=== PATIENT | male | born 1955 | race Caucasian/White ===

== ENCOUNTER 2018-09-06 12:57 | Inpatient (IN) | payer MEDICARE ==
[2018-09-06] MEDS ORDERED: CLINDAMYCIN 900 MG/D5W RTU 900 MG/50 ML RTUPB IV ONE (13:30)
--- NOTE | 2018-09-06 13:30 | ER Document Report ---
ED Medical Screen (RME) - General Chief Complaint: Toothache Stated Complaint: TOOTH PAIN Time Seen by Provider: 09/06/18 13:18 Notes: Patient is a 62-year-old male that presents to the emergency department for chief complaint of right tooth pain, and jaw swelling. Patient first noticed pain in his jaw this past Wednesday, and progressed to significant swelling over the course the weekend into today ROS: Other than noted above, the 12 point review of systems was reviewed with the patient and were negative, all pertinent findings are included in the HPI. PHYSICAL EXAMINATION: Vital signs reviewed. GENERAL: Well-appearing, well-nourished and in no acute distress. HEAD: Atraumatic, normocephalic. EYES: Pupils equal round extraocular movements intact, conjunctiva are normal. ENT: Nares patent, dental caries noted, no discrete dental abscess appreciated. NECK: There is tenderness and swelling along the right lateral jawline and neck in the submental region is tender as well CV: Heart regular rate and rhythm LUNGS: No respiratory distress Musculoskeletal: Normal range of motion NEUROLOGICAL: Normal speech PSYCH: Normal mood, normal affect. MDM: Patient seen and examined for rapid initial assessment. Vital signs reviewed. A comprehensive ED assessment and evaluation of the patient, analysis of test results and completion of the medical decision making process will be conducted by additional ED providers. *Note is created using voice recognition software and may contain spelling, syntax or grammatical errors. TRAVEL OUTSIDE OF THE [place] IN LAST 30 DAYS: No - Related Data Allergies/Adverse Reactions: No Known Allergies Allergy (Verified 09/06/18 12:57) Past Medical History - Social History Chew tobacco use (# tins/day): No Frequency of alcohol use: Social Drug Abuse: None Renal/ Medical History: Denies: Hx Peritoneal Dialysis Past Surgical History: Reports: Hx Orthopedic Surgery - back, R shoulder Physical Exam - Vital signs Vitals: Temp Pulse Resp BP Pulse Ox 98.4 F 92 16 120/85 97 09/06/18 13:00 09/06/18 13:00 09/06/18 13:00 09/06/18 13:00 09/06/18 13:00 Course - Vital Signs Vital signs: Temp Pulse Resp BP Pulse Ox 98.4 F 92 16 120/85 97 09/06/18 13:00 09/06/18 13:00 09/06/18 13:00 09/06/18 13:00 09/06/18 13:00
[2018-09-06] MEDS ORDERED: NORMAL SALINE 1000 ML 1,000 ML IV ONE (13:32)
--- NOTE | 2018-09-06 13:58 | ER Document Report ---
ED General - General Chief Complaint: Toothache Stated Complaint: TOOTH PAIN Time Seen by Provider: 09/06/18 13:18 TRAVEL OUTSIDE OF THE [place] IN LAST 30 DAYS: No - HPI Notes: Patient is a 62-year-old male that presents to the emergency department for chief complaint of dental infection. Patient started having a right-sided dental pain Wednesday of last week. He saw his primary care provider on Wednesday and was placed on penicillin VK. Patient reports he has had increased pain and swelling over the right side of his face. He now has a constant achy pain that is worse when he moves his jaw. He states he is having a hard time swallowing and opening his mouth completely. He does report intermittent chills but has not taken his temperature. He denies history of dental infections in the past. He denies trauma to the area. Currently he denies any difficulty breathing. Past Medical History: Hypertension Past Surgical History: Negative Social History: Daily tobacco. Occasional alcohol. Denies drug use Family History: Reviewed and noncontributory for presenting illness Allergies: Reviewed, see documented allergy list. REVIEW OF SYSTEMS: CONSTITUTIONAL : No fever No chills No diaphoresis No recent illness EENT: Dental pain Facial swelling No vision changes No congestion No sore throat CARDIOVASCULAR: No chest pain No palpitations RESPIRATORY: No shortness of breath No cough No difficulty breathing GASTROINTESTINAL: No abdominal pain No nausea No vomiting No diarrhea GENITOURINARY: No dysuria No hematuria No difficulty urinating MUSCULOSKELETAL: No back pain No leg pain No arm pain SKIN: No rashes No lesions LYMPHATIC: No swollen, enlarged glands. NEUROLOGICAL: No lightheadedness No headache No weakness No paresthesias PSYCHIATRIC: No anxiety No depression PHYSICAL EXAMINATION: Vital signs reviewed, nursing noted reviewed. GENERAL: Well-appearing, well-nourished and in no acute distress. HEAD: Atraumatic, normocephalic. EYES: Eyes appear normal, extraocular movements intact, sclera anicteric, conjunctiva are normal. ENT: Sublingual edema, edema over right mandibular region with erythema. No palpable fluctuance. No visualized drainage. Limited range of motion of jaw. No lingual edema. Diffuse dental decay NECK: Normal range of motion, supple without lymphadenopathy LUNGS: Breath sounds clear to auscultation bilaterally and equal. No wheezes rales or rhonchi. HEART: Regular rate and rhythm without murmurs ABDOMEN: Soft, nontender, normoactive bowel sounds. No rebound, guarding, or rigidity. No masses appreciated. EXTREMITIES: Nontender, good range of motion, no pitting or edema. NEUROLOGICAL: No focal neurological deficits. Moves all extremities spontaneously Motor and sensory grossly intact on exam. PSYCH: Normal mood, normal affect. SKIN: Warm, Dry, normal turgor, no rashes or lesions noted on exposed skin - Related Data Allergies/Adverse Reactions: No Known Allergies Allergy (Verified 09/06/18 12:57) Past Medical History - Social History Smoking Status: Current Every Day Smoker Chew tobacco use (# tins/day): No Frequency of alcohol use: Social Drug Abuse: None Family History: Reviewed & Not Pertinent Patient has suicidal ideation: No Patient has homicidal ideation: No Renal/ Medical History: Denies: Hx Peritoneal Dialysis Past Surgical History: Reports: Hx Orthopedic Surgery - back, R shoulder Review of Systems - Review of Systems Notes: Dictated Physical Exam - Vital signs Vitals: Temp Pulse Resp BP Pulse Ox 98.4 F 92 16 120/85 97 09/06/18 13:00 09/06/18 13:00 09/06/18 13:00 09/06/18 13:00 09/06/18 13:00 - Notes Notes: Dictated Course - Re-evaluation Re-evalutation: 09/06/18 13:58 Vitals reviewed. Nursing notes reviewed. Patient has significant sublingual edema but is still protecting his airway and oxygenating well on room air. He has failed outpatient penicillin and will be started on IV clindamycin. Blood cultures were obtained. CT scan will be ordered to evaluate for Farhat's angina and airway compromise. 09/06/18 15:43 Patient reevaluated and had some increased pain, he was given a dose of morphine. On reevaluation after receiving pain medicine he is feeling much better. CT scan shows a large submental area of abscess. I discussed patient' s abscess with ENT Dr. Bliss, who will see the patient in consultation tomorrow. Patient will be admitted to [facility] for close respiratory monitoring. Remainder of his workup is unremarkable. Case discussed with Dr. Hester who accepted admission. Patient in agreement with this plan and stable at time of admission. Laboratory 09/06/18 09/06/18 14:00 14:00 WBC 13.7 H RBC 4.87 Hgb 11.1 L Hct 33.0 L MCV 68 L MCH 22.7 L MCHC 33.6 RDW 14.4 H Plt Count 362 Seg Neutrophils % 72.4 Lymphocytes % 16.0 Monocytes % 9.2 Eosinophils % 1.5 Basophils % 0.9 Absolute Neutrophils 9.9 H Absolute Lymphocytes 2.2 Absolute Monocytes 1.3 Absolute Eosinophils 0.2 Absolute Basophils 0.1 Sodium 141.5 Potassium 4.5 Chloride 104 Carbon Dioxide 26 Anion Gap 12 BUN 14 Creatinine 0.97 Est GFR ( Amer) > 60 Est GFR (Non-Af Amer) > 60 Glucose 91 Calcium 9.1 Total Bilirubin 1.4 H Direct Bilirubin 0.9 H Neonat Total Bilirubin Not Reportable Neonat Direct Bilirubin Not Reportable Neonat Indirect Bili Not Reportable AST 25 ALT 38 Alkaline Phosphatase 185 H Total Protein 6.6 Albumin 3.3 L Soft Tissue Neck CT 09/06/18 13:32 IMPRESSION: Right floor of mouth 4.5 x 3.5 x 3 cm abscess. - Vital Signs Vital signs: Temp Pulse Resp BP Pulse Ox 98.4 F 92 16 120/85 95 09/06/18 13:00 09/06/18 13:00 09/06/18 13:00 09/06/18 13:00 09/06/18 14:25 - Laboratory Result Diagrams: 09/06/18 14:00 09/06/18 14:00 Laboratory results interpreted by me: 09/06/18 09/06/18 14:00 14:00 WBC 13.7 H Hgb 11.1 L Hct 33.0 L MCV 68 L MCH 22.7 L RDW 14.4 H Absolute Neutrophils 9.9 H Total Bilirubin 1.4 H Direct Bilirubin 0.9 H Alkaline Phosphatase 185 H Albumin 3.3 L Critical Care Note - Critical Care Note Total time excluding time spent on procedures (mins): 35 Comments: Potential for airway compromise from Lucia's angina. Admit to IMCU. Close respiratory monitoring and frequent re-evaluations. Discharge - Discharge Clinical Impression: Ludwigs angina Condition: Stable Disposition: ADMITTED INPATIENT Admitting Provider: Hospitalist Unit Admitted: [facility]
[2018-09-06 14:10] LABS: ABSOLUTE BASOPHILS # (AUTO) 0.1 10^3/uL (0.0-0.2); ABSOLUTE EOSINOPHILS # (AUTO) 0.2 10^3/uL (0.0-0.6); ABSOLUTE LYMPHOCYTES (AUTO) 2.2 10^3/uL (0.5-4.7); ABSOLUTE MONOCYTES (AUTO) 1.3 10^3/uL (0.1-1.4); ABSOLUTE NEUT (AUTO) 9.9 10^3/uL (1.7-8.2); BASOPHILS % (AUTO) 0.9 % (0-2); EOSINOPHILS % (AUTO) 1.5 % (0-6); HEMOGLOBIN 11.1 g/dL (13.5-17.0); MEAN CORPUSCULAR HEMOGLOBIN 22.7 pg (27.0-33.4); MEAN CORPUSCULAR HGB CONC 33.6 g/dL (32.0-36.0); MEAN CORPUSCULAR VOLUME 68 fl (80-97); MONOCYTES % (AUTO) 9.2 % (3-13); PLATELET COUNT 362 10^3/uL (150-450); RED BLOOD COUNT 4.87 10^6/uL (4.35-5.55); RED CELL DISTRIBUTION WIDTH 14.4 % (11.5-14.0); SEGMENTED NEUTROPHILS % (AUTO) 72.4 % (42-78); TOTAL CELLS COUNTED % (AUTO) 100 %; WHITE BLOOD COUNT 13.7 10^3/uL (4.0-10.5)
[2018-09-06 14:35] LABS: ALANINE AMINOTRANSFERASE 38 U/L (21-72); ALBUMIN 3.3 g/dL (3.5-5.0); ALKALINE PHOSPHATASE 185 U/L (38-126); ANION GAP 12 (5-19); ASPARTATE AMINO TRANSFERASE 25 U/L (17-59); BILIRUBIN,DIRECT 0.9 mg/dL (0.0-0.4); BILIRUBIN,TOTAL 1.4 mg/dL (0.2-1.3); BLOOD UREA NITROGEN 14 mg/dL (7-20); CALCIUM 9.1 mg/dL (8.4-10.2); CARBON DIOXIDE 26 mmol/L (22-30); CHLORIDE 104 mmol/L (98-107); GLUCOSE 91 mg/dL (75-110); POTASSIUM 4.5 mmol/L (3.6-5.0); SODIUM 141.5 mmol/L (137-145); TOTAL PROTEIN 6.6 g/dL (6.3-8.2)
[2018-09-06] MEDS ORDERED: MORPHINE SULFATE 10 MG/ML INJ IV ONE (14:47)
--- NOTE | 2018-09-06 15:33 | RADIOLOGY REPORT (SQ) ---
EXAM DESCRIPTION: CT SOFT TISSUE NECK WITH COMPLETED DATE/TIME: 09/06/2018 2:46 pm REASON FOR STUDY: right neck and submental edema , right facial pain COMPARISON: None. TECHNIQUE: Post IV contrasted scanning from skull base through lung apices with review of bone, soft tissue and lung windows. Reconstructed coronal and sagittal MPR images reviewed. All images stored on PACS. All CT scanners at this facility use dose modulation, iterative reconstruction, and/or weight based d osing when appropriate to reduce radiation dose to as low as reasonably achievable (ALARA). [facility]: Dose Right [facility]: CareDose [facility]: Dose Right [facility]: Teradose 4D [facility]: CHORD CONTRAST TYPE AND DOSE: contrast/concentration: Isovue 350.00 mg/ml; Total Contrast Delivered: 75.0 ml; Total Saline Delivered: 55.0 ml RENAL FUNCTION: GFR > 60. RADIATION DOSE: CT Rad equipment meets quality standard of care and radiation dose reduction techniq ues were employed. CTDIvol: 16.8 mGy. DLP: 537 mGy-cm. . LIMITATIONS: None. FINDINGS: A 4.5 cm (AP) by 3.5 cm (transverse) by 3 cm (craniocaudad) abscess is present along the r ight floor of mouth, along the buccal and superficial surface of the right mandible. This tracks inf eriorly along the right floor of mouth between the mylohyoid and genopglossus muscle. There is mil d local mass effect, displacing the tongue to the left. No airway compromise. Abscess abuts the jatin tral aspect of the right submandibular gland. There is overlying superficial cellulitis along the ri ght cheek and chin soft tissues. These findings are best shown on axial images 46-54, coronal images 17-28, and sagittal image 26. SKULL BASE: Intact. MAJOR SALIVARY GLANDS: No solid or cystic masses. LYMPHADENOPATHY: Mild reactive cervical adenopathy with subcentimeter lymph nodes along the right car otid space MUCOSAL MASSES OR ASYMMETRY: Mild local mass effect along the abscess without airway compromise. Rem ainder of the naso nilay and hypopharynx are unremarkable. LARYNX/CORDS: No abnormal findings. VASCULAR STRUCTURES: The major vessels are patent. LUNG APICES: Clear. BONES: Intact. THYROID: Normal size. No masses. PARANASAL SINUSES: Clear. OTHER: No other significant finding. IMPRESSION: Right floor of mouth 4.5 x 3.5 x 3 cm abscess. TECHNICAL DOCUMENTATION: JOB ID: [id number] Quality ID # [id number]: Final reports with documentation of one or more dose reduction techniques (e.g., Au tomated exposure control, adjustment of the mA and/or kV according to patient size, use of iterative reconstruction technique) 2010 [employer]- All Rights Reserved Reading location - IP/workstation name: [email or web address]
[2018-09-06] MEDS ORDERED: AMPICILLIN SOD/SULBACTAM 3 GM VIAL IV ONE (15:40)
--- NOTE | 2018-09-06 15:46 | EKG REPORT ---
SEVERITY:- NORMAL ECG - SINUS RHYTHM : Confirmed by: Juliann Houston MD 06-Sep-2018 15:46:05
[2018-09-06] MEDS ORDERED: ONDANSETRON HCL INJ/PF 4 MG/2 ML SDV IV PRN (16:29)
[2018-09-06] MEDS ORDERED: ACETAMINOPHEN 650 MG SUPP.RECT PR PRN (16:29)
[2018-09-06] MEDS ORDERED: ALBUTEROL SULFATE HFA (90 MCG/PUFF) 8 GM MDI (1 MDI/ER DISP) IH PRN (16:37)
--- NOTE | 2018-09-06 17:05 | PDOC H&P ---
History of Present Illness Admission Date/PCP: t 09/06/2018 Patient complains of: tooth pain History of Present Illness: SUMI OLIVO is a 62 year old male 62-year-old male came to the emergency room with complaints of toothache for the last 1 week. Adding to the patient the symptoms of the symptoms started as us to take 1 week ago patient does not have any insurance so he tried to take Tylenol on a hoping that problem goes away but the symptoms of pain getting worse on the daily basis associated with occasional fever and chills decreased appetite and difficulty in swallowing he is able to take "only soup so he decided to call his primary care physician in [place] on got a prescription for penicillin VK started taking since last Wednesday despite taking the antibiotics his symptoms are not getting better at home actually gotten worse on the pain is radiating to the from the right side of the mouth all the way to the scalp according to the patient pain was 10 x 10 intense pain associated with decreased appetite and difficulty in swallowing he denies any problems with shortness of breath denies any nausea vomiting diarrhea denies any chest pains denies any shortness of breath so he decided to came to the emergency room today in the emergency room CT of the soft tissue neck was done found to have an abscess on the floor of the right side of the mouth. Was started on initially on clindamycin and then switched to Unasyn in the ER he was given IV morphine as per the patient pain is improved significantly. Denies any problems like this before. The ER physician discussed the case with ENT surgeon and as per the surgeon's recommendations started on Unasyn patient is going to be seen by the ENT tomorrow for further management in the meantime we are planning to admit the patient to the stepdown Past Medical History Cardiac Medical History: Reports: Hypertension EENT Medical History: Reports: Other - Patient complains of difficulty in hearing Neurological Medical History: Reports: None Endocrine Medical History: Reports: Other - Patient says he is borderline diabetic Malignancy Medical History: Reports: Other - Patient has a history of bladder cancer and last seen the urologist 6 month GI Medical History: Reports: Gastroesophageal Reflux Disease Musculoskeltal Medical History: Reports: None Skin Medical History: Reports: None Psychiatric Medical History: Reports: Depression Hematology: Reports: None Infectious Medical History: Reports: None Past Surgical History Past Surgical History: Reports: Orthopedic Surgery - back, R shoulder, Other - Patient has history of back surgeries due to his work Social History Smoking Status: Current Every Day Smoker Hx Recreational Drug Use: No Hx Prescription Drug Abuse: No Family History Family History: None, Reviewed & Not Pertinent Parental Family History Reviewed: Yes Children Family History Reviewed: Yes Sibling(s) Family History Reviewed.: Yes Medication/Allergy Home Medications: Albuterol Sulfate [Ventolin Hfa 8 gm Mdi (1 Mdi/ER Disp)] 2 puff IH PRN PRN Diclofenac Sodium 75 mg PO PRN PRN 09/06/18 Gabapentin [Neurontin 400 mg Capsule] 400 mg PO DAILY 09/06/18 Losartan Potassium 100 mg PO DAILY 09/06/18 Metoprolol Succinate [Toprol Xl] 50 mg PO DAILY 09/06/18 Naproxen [Naproxen] 500 mg PO PRN PRN 09/06/18 Omeprazole [Omeprazole] 20 mg PO DAILY 09/06/18 Venlafaxine HCl [Venlafaxine Hcl Er] 225 mg PO DAILY 09/06/18 Allergies/Adverse Reactions: codeine Allergy (Verified 09/06/18 16:20) Review of Systems Constitutional: PRESENT: chills, fatigue, fever(s) Nose, Mouth, and Throat: PRESENT: headache(s), mouth pain Cardiovascular: ABSENT: chest pain, dyspnea on exertion, edema, orthropnea, palpitations Respiratory: ABSENT: cough, hemoptysis Gastrointestinal: PRESENT: other - Decreased appetite and difficulty in taking solid food Genitourinary: ABSENT: dysuria, hematuria Musculoskeletal: ABSENT: joint swelling Neurological: ABSENT: abnormal gait, abnormal speech, confusion, dizziness, focal weakness, syncope Psychiatric: ABSENT: anxiety, depression, homidical ideation, suicidal ideation Endocrine: ABSENT: cold intolerance, heat intolerance, polydipsia, polyuria Hematologic/Lymphatic: ABSENT: easy bleeding, easy bruising Physical Exam Vital Signs: Temp Pulse Resp BP Pulse Ox 98.4 F 92 20 124/86 H 94 09/06/18 13:00 09/06/18 13:00 09/06/18 16:19 09/06/18 16:19 09/06/18 16:19 Intake & Output 09/05/18 09/06/18 09/07/18 06:59 06:59 06:59 Intake Total 1050 Balance 1050 Weight 81 kg General appearance: PRESENT: mild distress Head exam: PRESENT: atraumatic Eye exam: PRESENT: PERRLA Ear exam: PRESENT: normal external ear exam Mouth exam: PRESENT: other - Patient has difficulty in opening his mouth Throat exam: PRESENT: other - Patient has a difficulty opening the jaw and difficulty in examination of the throat Neck exam: PRESENT: tenderness, other - Right side of the face is swollen very tender to touch especially in the mandibular area Respiratory exam: PRESENT: clear to auscultation monika. ABSENT: rales, rhonchi, wheezes Cardiovascular exam: PRESENT: RRR. ABSENT: diastolic murmur, rubs, systolic murmur Pulses: PRESENT: normal dorsalis pedis pul GI/Abdominal exam: PRESENT: normal bowel sounds, soft. ABSENT: distended, guarding, mass, organolmegaly, rebound, tenderness Extremities exam: PRESENT: full ROM. ABSENT: calf tenderness, clubbing, pedal edema Neurological exam: PRESENT: alert, awake, oriented to person, oriented to place , oriented to time, oriented to situation, CN II-XII grossly intact. ABSENT: motor sensory deficit Psychiatric exam: PRESENT: appropriate affect, normal mood. ABSENT: homicidal ideation, suicidal ideation Skin exam: PRESENT: dry, intact, warm. ABSENT: cyanosis, rash Results Laboratory Results: 09/06/18 14:00 09/06/18 14:00 09/06/18 09/06/18 14:00 14:00 WBC 13.7 H RBC 4.87 Hgb 11.1 L Hct 33.0 L MCV 68 L MCH 22.7 L MCHC 33.6 RDW 14.4 H Plt Count 362 Seg Neutrophils % 72.4 Lymphocytes % 16.0 Monocytes % 9.2 Eosinophils % 1.5 Basophils % 0.9 Absolute Neutrophils 9.9 H Absolute Lymphocytes 2.2 Absolute Monocytes 1.3 Absolute Eosinophils 0.2 Absolute Basophils 0.1 Sodium 141.5 Potassium 4.5 Chloride 104 Carbon Dioxide 26 Anion Gap 12 BUN 14 Creatinine 0.97 Est GFR ( Amer) > 60 Est GFR (Non-Af Amer) > 60 Glucose 91 Calcium 9.1 Total Bilirubin 1.4 H AST 25 ALT 38 Alkaline Phosphatase 185 H Total Protein 6.6 Albumin 3.3 L Impressions: Soft Tissue Neck CT 09/06/18 13:32 IMPRESSION: Right floor of mouth 4.5 x 3.5 x 3 cm abscess. Assessment & Plan - Diagnosis (1) Ludwigs angina Is this a current diagnosis for this admission?: Yes Plan: 09/06/2018. Patient came in with right-sided facial swelling and severe pain tooth pain for the last [address] scan was done in the ER found to have an abscess in the floor of the mouth ENT was consulted on blood cultures was taken and started on IV pain medications morphine and IV Unasyn and we are planning to continue IV pain medications morphine 2 mg every 4 hours as needed IV Unasyn 1.5 g IV every 6 hours ENT consult was requested because to keep him n.p.o. tonight and GI prophylaxis was done and DVT prophylaxis was started pending blood cultures (2) HTN (hypertension) Is this a current diagnosis for this admission?: Yes Plan: 11/06/2017 patient has history of chronic hypertension, is on losartan and he is also on hydrochlorothiazide going to hold his medications because he is n.p.o. right now (3) Prostate CA Is this a current diagnosis for this admission?: Yes Plan: 09/06/2018 patient has history of prostate cancer and is following up with urologist every 6 months and he was treated with BCG injections before and that he is asymptomatic right now (4) Depression Is this a current diagnosis for this admission?: Yes Plan: 09/06/2018-patient has a history of depression he is asymptomatic right now V going to hold his antidepressant medications tonight because patient is n.p.o. if necessary I am going to put him on clonazepam 1 mg IV every 6 as needed for anxiety and agitation (5) GERD (gastroesophageal reflux disease) Is this a current diagnosis for this admission?: Yes Plan: 09/06/2018 patient was started on IV pantoprazole 40 mg daily - Time Time Spent: 30 to 50 Minutes Medications reviewed and adjusted accordingly: Yes Anticipated discharge: Home - Inpatient Certification I certify that my determination is in accordance with my understanding of Medicare's requirements for reasonable and necessary INPATIENT services [42 CFR 412.3e].: Yes
[2018-09-06] MEDS ORDERED: LORAZEPAM INJ 2 MG/1 ML VIAL IV ONE (17:30)
[2018-09-06 17:42] LABS: ABSOLUTE BASOPHILS # (AUTO) 0.1 10^3/uL (0.0-0.2); ABSOLUTE EOSINOPHILS # (AUTO) 0.3 10^3/uL (0.0-0.6); ABSOLUTE LYMPHOCYTES (AUTO) 2.3 10^3/uL (0.5-4.7); ABSOLUTE MONOCYTES (AUTO) 1.3 10^3/uL (0.1-1.4); ABSOLUTE NEUT (AUTO) 9.5 10^3/uL (1.7-8.2); BASOPHILS % (AUTO) 0.5 % (0-2); EOSINOPHILS % (AUTO) 2.1 % (0-6); HEMATOCRIT 30.5 % (37.9-51.0); HEMOGLOBIN 10.1 g/dL (13.5-17.0); LYMPHOCYTES % (AUTO) 16.8 % (13-45); MEAN CORPUSCULAR HEMOGLOBIN 22.5 pg (27.0-33.4); MEAN CORPUSCULAR VOLUME 68 fl (80-97); MONOCYTES % (AUTO) 9.6 % (3-13); PLATELET COUNT 331 10^3/uL (150-450); RED BLOOD COUNT 4.48 10^6/uL (4.35-5.55); RED CELL DISTRIBUTION WIDTH 14.2 % (11.5-14.0); TOTAL CELLS COUNTED % (AUTO) 100 %; WHITE BLOOD COUNT 13.4 10^3/uL (4.0-10.5)
[2018-09-06] MEDS: MORPHINE SULFATE 10 MG/ML INJ IV PRN ×2 (18:24→22:51)
[2018-09-06] MEDS: NORMAL SALINE 1000 ML 1,000 ML IV PRN (18:25)
[2018-09-06] MEDS: AMPICILLIN SODIUM/SULBACTAM NA 1.5 GM in NORMAL SALINE 50 ML IV SCH (20:58)
[2018-09-06] MEDS ORDERED: AMPICILLIN SODIUM/SULBACTAM NA 1 GM in NORMAL SALINE 50 ML IV SCH (21:00)
[2018-09-06] MEDS ORDERED: KETOROLAC TROMETHAMINE INJ/PF 30 MG/1 ML SDV IV ONE (21:00)
[2018-09-06] MEDS: PANTOPRAZOLE SODIUM 40 MG VIAL IV SCH (21:06)
[2018-09-06] MEDS: DEXAMETHASONE SOD PHOS INJ 10 MG/1 ML VIAL IV SCH (21:06)
[2018-09-07] MEDS: AMPICILLIN SODIUM/SULBACTAM NA 1.5 GM in NORMAL SALINE 50 ML IV SCH (02:24)
[2018-09-07] MEDS: MORPHINE SULFATE 10 MG/ML INJ IV PRN ×4 (02:58→22:27)
[2018-09-07 05:22] LABS: ABSOLUTE LYMPHOCYTES (AUTO) 0.7 10^3/uL (0.5-4.7); ABSOLUTE MONOCYTES (AUTO) 0.2 10^3/uL (0.1-1.4); ABSOLUTE NEUT (AUTO) 9.6 10^3/uL (1.7-8.2); BASOPHILS % (AUTO) 0.4 % (0-2); EOSINOPHILS % (AUTO) 0.1 % (0-6); HEMATOCRIT 31.1 % (37.9-51.0); HEMOGLOBIN 10.5 g/dL (13.5-17.0); LYMPHOCYTES % (AUTO) 6.9 % (13-45); MEAN CORPUSCULAR HEMOGLOBIN 22.7 pg (27.0-33.4); MEAN CORPUSCULAR HGB CONC 33.8 g/dL (32.0-36.0); MEAN CORPUSCULAR VOLUME 67 fl (80-97); MONOCYTES % (AUTO) 1.6 % (3-13); PLATELET COUNT 364 10^3/uL (150-450); RED BLOOD COUNT 4.62 10^6/uL (4.35-5.55); RED CELL DISTRIBUTION WIDTH 14.4 % (11.5-14.0); TOTAL CELLS COUNTED % (AUTO) 100 %; WHITE BLOOD COUNT 10.6 10^3/uL (4.0-10.5)
[2018-09-07 05:30] LABS: ALANINE AMINOTRANSFERASE 33 U/L (21-72); ALBUMIN 2.9 g/dL (3.5-5.0); ALKALINE PHOSPHATASE 142 U/L (38-126); ANION GAP 12 (5-19); ASPARTATE AMINO TRANSFERASE 19 U/L (17-59); BILIRUBIN,DIRECT 0.6 mg/dL (0.0-0.4); BLOOD UREA NITROGEN 14 mg/dL (7-20); CALCIUM 8.4 mg/dL (8.4-10.2); CARBON DIOXIDE 21 mmol/L (22-30); CHLORIDE 107 mmol/L (98-107); GLUCOSE 117 mg/dL (75-110); POTASSIUM 4.7 mmol/L (3.6-5.0); SODIUM 139.8 mmol/L (137-145); TOTAL PROTEIN 5.8 g/dL (6.3-8.2)
[2018-09-07] MEDS: DEXAMETHASONE SOD PHOS INJ 10 MG/1 ML VIAL IV SCH ×2 (05:34→15:06)
[2018-09-07] MEDS: KETOROLAC TROMETHAMINE INJ/PF 30 MG/1 ML SDV IV PRN ×2 (05:34→16:37)
[2018-09-07 05:53] LABS: INTERNATIONAL RATION (INR) 1.06; PROTHROMBIN TIME 14.3 SEC (11.4-15.4)
[2018-09-07] MEDS ORDERED: ALBUTEROL SULFATE HFA (90 MCG/PUFF) 200 PUFF/8.5 GM MDI IH PRN (07:39)
--- NOTE | 2018-09-07 08:28 | PDOC PROGRESS REPORT ---
Subjective Progress Note for:: 09/07/18 Subjective:: 11/07/2017. 62-year-old male admitted with the right mandibular abscess yesterday. Started on IV Unasyn and clindamycin in the emergency room. He was consulted. ENT surgeon discussed the case with me this morning his recommendation is to be seen by oral surgeon as a therapeutic consultant because patient's has right mandibular abscess. Patient is comfortable in the bed he is complaining of pain scale of 5 x 10 at this point he is getting morphine 2 mg IV every 4 hours and is also on Ativan as needed basis for anxiety. Patient is afebrile this morning with a temperature of 97.6. Blood pressure is 130/78. Reason For Visit: MANDIBULAR ABCESS Physical Exam Vital Signs: Temp Pulse Resp BP Pulse Ox 97.6 F 63 16 130/78 H 96 09/07/18 03:54 09/07/18 07:00 09/07/18 03:54 09/07/18 03:54 09/07/18 03:54 Intake & Output 09/06/18 09/07/18 09/08/18 06:59 06:59 06:59 Intake Total 100 Output Total 0 Balance 100 Weight 80.9 kg General appearance: PRESENT: mild distress Head exam: PRESENT: atraumatic, normocephalic Eye exam: PRESENT: PERRLA Mouth exam: PRESENT: moist, other - Patient has difficulty in opening the mouth and complaining of pain on the right side of the cheek on gentle palpation. Teeth exam: PRESENT: dental caries Neck exam: ABSENT: carotid bruit, JVD, lymphadenopathy, thyromegaly Respiratory exam: PRESENT: clear to auscultation monika. ABSENT: rales, rhonchi, wheezes Cardiovascular exam: PRESENT: RRR. ABSENT: diastolic murmur, rubs, systolic murmur Pulses: PRESENT: normal dorsalis pedis pul GI/Abdominal exam: PRESENT: normal bowel sounds, soft. ABSENT: distended, guarding, mass, organolmegaly, rebound, tenderness Extremities exam: PRESENT: full ROM. ABSENT: calf tenderness, clubbing, pedal edema Neurological exam: PRESENT: alert, awake, oriented to person, oriented to place , oriented to time, oriented to situation, CN II-XII grossly intact. ABSENT: motor sensory deficit Psychiatric exam: PRESENT: appropriate affect, normal mood. ABSENT: homicidal ideation, suicidal ideation Skin exam: PRESENT: dry, intact, warm. ABSENT: cyanosis, rash Results Laboratory Results: 09/07/18 04:17 09/07/18 04:17 09/06/18 09/07/18 09/07/18 17:30 04:17 04:17 WBC 13.4 H 10.6 H RBC 4.48 4.62 Hgb 10.1 L 10.5 L Hct 30.5 L 31.1 L MCV 68 L 67 L MCH 22.5 L 22.7 L MCHC 33.0 33.8 RDW 14.2 H 14.4 H Plt Count 331 364 Seg Neutrophils % 71.0 91.0 H Lymphocytes % 16.8 6.9 L Monocytes % 9.6 1.6 L Eosinophils % 2.1 0.1 Basophils % 0.5 0.4 Absolute Neutrophils 9.5 H 9.6 H Absolute Lymphocytes 2.3 0.7 Absolute Monocytes 1.3 0.2 Absolute Eosinophils 0.3 0.0 Absolute Basophils 0.1 0.0 Sodium 139.8 Potassium 4.7 Chloride 107 Carbon Dioxide 21 L Anion Gap 12 BUN 14 Creatinine 0.84 Est GFR ( Amer) > 60 Est GFR (Non-Af Amer) > 60 Glucose 117 H Calcium 8.4 Magnesium 2.0 Total Bilirubin 1.0 AST 19 ALT 33 Alkaline Phosphatase 142 H Total Protein 5.8 L Albumin 2.9 L Impressions: Soft Tissue Neck CT 09/06/18 13:32 IMPRESSION: Right floor of mouth 4.5 x 3.5 x 3 cm abscess. Assessment & Plan - Diagnosis (1) Mandibular abscess Is this a current diagnosis for this admission?: Yes Plan: 09/07/2018. She came to the emergency room with complaints of toothache for 1 week found to have a tooth infection with right mandibular abscess on the CT scan. He was started on IV antibiotic therapy blood cultures are pending. ENT saw the patient this morning and Dr. Estevez's recommendation is to consult oral surgery. I discussed the case with Dr. Estevez is going to see the patient this afternoon. Going to keep the patient n.p.o. Probably he may go to surgery this afternoon. Patient complaining of pain a 5 x 10 at present he is on morphine 2 mg IV every 4 hours, I increased the dose to 3 mg IV every 4 hours. I am also going to hold his Lovenox. KILEY hoses. Blood cultures are pending. Temperature is 97.6 this morning. Obese is 10.6. The INR is 1.06. (2) GERD (gastroesophageal reflux disease) Is this a current diagnosis for this admission?: Yes Plan: 09/06/2018 patient was started on IV pantoprazole 40 mg daily 09/07/2018 has history of GERD he is on pantoprazole 40 mg IV drip for GI prophylaxis. (3) Depression Is this a current diagnosis for this admission?: Yes Plan: 09/06/2018-patient has a history of depression he is asymptomatic right now V going to hold his antidepressant medications tonight because patient is n.p.o. if necessary I am going to put him on clonazepam 1 mg IV every 6 as needed for anxiety and agitation 09/07/2018-patient has history of depression on antidepressants are on hold because patient is n.p.o. patient denies any anxiety or depression at this point (4) Prostate CA Is this a current diagnosis for this admission?: Yes Plan: 09/06/2018 patient has history of prostate cancer and is following up with urologist every 6 months and he was treated with BCG injections before and that he is asymptomatic right now 09/07/2018 patient history has history of prostate cancer he is following up with the urologist every 6 months he is asymptomatic right now he has history of previous BCG injections. (5) HTN (hypertension) Qualifiers: Hypertension type: essential hypertension Qualified Code(s): I10 - Essential (primary) hypertension Is this a current diagnosis for this admission?: Yes Plan: 11/06/2017 patient has history of chronic hypertension, is on losartan and he is also on hydrochlorothiazide going to hold his medications because he is n.p.o. right now 09/07/2018 his blood pressure is 130/78 he has history of hypertension he is blood pressure medications are on hold at this point because patient is n.p.o. - Time Time Spent with patient: 15-24 minutes Anticipated discharge: Home
--- NOTE | 2018-09-07 08:51 | CONSULTATION REPORT E ---
Consultation Report NAME: SUMI OLIVO : 1955 AGE: 62Y DATE: 09/07/2018 305 A TO: MICHELLE HERNANDEZ MD FROM: FILOMENA DELONG M.D. Requesting Physician HISTORY: A 62-year-old male presented to the emergency room with facial swelling and pain overlying his right mandible. The patient states he does have history of dental problems and he states that about a week ago he noticed his right mandibular molar was tender and that pain steadily increased in intensity. The patient is visiting the area from [facility]. He states that he called his primary care provider in [place] who sent him a prescription for penicillin and he started taking that 4 times a day; however, he noted that the right mandibular swelling started increasing and the pain was increasing in intensity. He presented to the emergency room at [facility] yesterday where he was evaluated and it was determined that he had what appeared to be an abscess on CT scan and he was admitted to the hospital for observation and Otolaryngology was consulted. Upon evaluation this morning, the patient states that the pain is decreased. He is able to open up his mouth more and he notices foul drainage intraorally that appears to be of purulent material. The patient was placed on IV antibiotics and IV steroids. The patient states that he is feeling better than yesterday. He feels that the tightness in his neck has decreased and the pain has decreased; however, he is still complaining of intense pain overlying the right mandible. PHYSICAL EXAMINATION: HEENT: The oral cavity and oropharynx reveals trismus. There is purulent material expressed intraorally when palpating the submental and submandibular area. It appears to be coming from the right mandibular gingiva, most likely from the infected tooth. NECK: There is swelling and tenderness over the body and ramus of the right mandible. There is also swelling in the right submandibular area extending to the submental area. Palpation of this area results in expression of purulence intraorally. CARDIOVASCULAR: normal PULMONARY: normal NEUROLOGIC: normal GENERAL: no apparent distress ASSESSMENT: Odontogenic-related right submandibular/submental abscess. PLAN: 1. The diagnosis and treatment plan were discussed with the patient who voiced understanding. 2. Recommend increasing the Unasyn to 3.1 mg 3. Continue with IV Decadron. 4. Recommend consulting Oral Maxillofacial Surgery since this is odontogenic related and there is concern for extension of the infection into the mandible possibly causing an osteomyelitis. Oral Maxillofacial Surgery should provide the definitive treatment. 5. Start warm compresses to the area, and after removing the warm compress, massage the submandibular/submental area to try to express the purulence intraorally. 6. The above plan was also discussed with the hospitalist employment consultant. DICTATING PHYSICIAN: MICHELLE HERNANDEZ M.D. [id number] PHY#: [id number] ID: [id number] JOB#: [id number] ACCT: [id number] cc:MICHELLE HERNANDEZ MD > MTDD
[2018-09-07] MEDS: ENOXAPARIN SODIUM INJ 40 MG/0.4 ML DISP.SYRIN SUBCUT SCH (09:37)
[2018-09-07] MEDS: METRONIDAZOLE 500 MG/NS RTU 500 MG/100 ML RTUPB IV SCH ×3 (10:06→22:28)
[2018-09-07] MEDS: PANTOPRAZOLE SODIUM 40 MG VIAL IV SCH ×2 (10:09→22:29)
[2018-09-07] MEDS ORDERED: LIDOCAINE 2%/EPINEPHRINE INJ 1.7 ML CARTRIDGE ONE (12:45)
[2018-09-07] MEDS ORDERED: BUPIVACAINE HCL 0.5%/EPI 1:200000 INJ 1.8 ML CARTRIDGE ONE ×2 (12:46→12:54)
[2018-09-07] MEDS ORDERED: MIDAZOLAM 2 MG/2 ML INJ ONE (12:48)
[2018-09-07] MEDS ORDERED: FENTANYL CITRATE INJ/PF 100 MCG/2 ML AMPUL ONE (12:48)
[2018-09-07] MEDS ORDERED: PROPOFOL INJ 200 MG/20 ML VIAL IV ONE (12:48)
[2018-09-07] MEDS ORDERED: PROMETHAZINE HCL INJ 25 MG/1 ML VIAL IV PRN ×2 (13:17)
[2018-09-07] MEDS ORDERED: MEPERIDINE HCL/PF INJ 25 MG/1 ML DISP.SYRIN IV PRN (13:17)
[2018-09-07] MEDS ORDERED: OXYCODONE-ACETAMINOPHEN 5-325 MG TABLET PO PRN ×2 (13:17)
[2018-09-07] MEDS ORDERED: FENTANYL CITRATE INJ/PF 100 MCG/2 ML AMPUL IV PRN ×3 (13:17)
[2018-09-07] MEDS ORDERED: DIPHENHYDRAMINE HCL 50 MG/ML VIAL IV PRN (13:17)
--- NOTE | 2018-09-07 14:42 | Operative Report ---
Operative Report DATE OF SURGERY: 09/07/18 Operative Report: Date of surgery: 09/07/2018 Preop Dx: right submandibular abscess; right sublingual abscess; right submental abscess; necrotic tooth #31 Postop Dx: ANGELA Surgeon: Zenaida Procedure: Extraction of tooth #31; I&D of right submandibular, sublingual, and submental abscess Material to Lab: aerobic/anaerobic cultures with sensitivity Estimated Blood Loss: 50ml Fluids: 200ml LR Drains: ramila drains x 2 intra-oral to extra-oral gravity drains Complications: None PREOPERATIVE DIAGNOSIS: Right submandibular space abscess; right sublingual space abscess, right submental space abscess; necrotic tooth #31 POSTOPERATIVE DIAGNOSIS: Same as preop dx OPERATION: Surgical Extraction of tooth #31; Incision and Drainage of right submandibular, sublingual and submental spaces with drains x 2. SURGEON: ANAY GALVAN ANESTHESIA: GA TISSUE REMOVED OR ALTERED: Tooth #31; Aerobic/anaerobic cultures from right submandibular space COMPLICATIONS: no complications ESTIMATED BLOOD LOSS: 50 ml INTRAOPERATIVE FINDINGS: consistent with preop dx. copious purulent drainage during procedure PROCEDURE: Patient taken to OR #2. General anesthesia was induced and an oral endo- tracheal tube was placed on the first attempt without complication. The endo- tracheal tube was secured to the patient's left side and care was turned over to the surgical team. A moistened ray-breanna sponge was stretched, moistened and placed as a throat pack. The patient's right cheek was then cleaned with an iodine prep. Local anesthetic was utilized to provide a right inferior alveolar nerve block, a buccal nerve block, vestibular infiltration and infiltration local anesthetic in the floor of the mouth on the right side. A #15 blade was used to make an envelope incision on the buccal of tooth #31 and a small envelope flap was developed. Copious purulence was noted from the incision, as well as, from a lingual fistula present prior to the surgery. A #23 forcep was applied to tooth #31 which was extracted in the standard fashion and removed from the oral cavity. Attention was then directed extra-orally and two one centimeter skin incisions were made. The first was approximated one centimeter below the right inferior border of the angle of the mandible just through the dermis. The second incision was approximately one centimeter below the inferior border of the mandible at the junction of the body of the mandible and parasymphasis region just through the dermis on the right side. Blunt dissection was then conducted to the inferior border of the mandible and carried to the lingual being careful to remain on the structure of the mandible. This procedure was accomplished from both incisions and the dissection was taken to the mucosa of the Floor of the Mouth. Sharp dissection was used to free the tip of the Claudia hemostat connecting the intra-oral cavity to the skin incision site. A ramila drain was then ran from the intra-oral region to the extra-oral region of both dissection points. The drains were then secured extra-orally with 4.0 silk suture. Both drains and all surgical sites were then irrigated with copious sterile saline. 4x4 gauze and a tegaderm were applied to the extra-oral drains as a dressing. The throat pack was removed and care of the patient was returned to the anesthesia team. The patient was awakened and transported to the PACU with stable vital signs having tolerated the procedure well.
[2018-09-07] MEDS: AMPICILLIN SODIUM/SULBACTAM NA 3 GM in NORMAL SALINE 100 ML IV SCH ×2 (14:52→18:28)
[2018-09-07] MEDS: NORMAL SALINE 1000 ML 1,000 ML IV PRN (22:37)
[2018-09-07] MEDS: DEXTROSE 5% IV SCH (23:33)
[2018-09-07] MEDS: DEXAMETHASONE SOD PHOSPHATE IV SCH (23:33)
[2018-09-07] MEDS: WATER IV SCH (23:33)
[2018-09-08] MEDS: AMPICILLIN SODIUM/SULBACTAM NA 3 GM in NORMAL SALINE 100 ML IV SCH ×4 (00:10→18:15)
[2018-09-08] MEDS: KETOROLAC TROMETHAMINE INJ/PF 30 MG/1 ML SDV IV PRN ×4 (00:15→20:20)
[2018-09-08] MEDS: MORPHINE SULFATE 10 MG/ML INJ IV PRN ×3 (03:37→16:53)
[2018-09-08] MEDS: METRONIDAZOLE 500 MG/NS RTU 500 MG/100 ML RTUPB IV SCH ×4 (03:38→20:02)
[2018-09-08] MEDS: PANTOPRAZOLE SODIUM 40 MG VIAL IV SCH (10:13)
[2018-09-08] MEDS: ENOXAPARIN SODIUM INJ 40 MG/0.4 ML DISP.SYRIN SUBCUT SCH (10:13)
[2018-09-08 10:14] LABS: HEMOGLOBIN 10.1 g/dL (13.5-17.0); MEAN CORPUSCULAR HEMOGLOBIN 22.3 pg (27.0-33.4); MEAN CORPUSCULAR HGB CONC 32.7 g/dL (32.0-36.0); MEAN CORPUSCULAR VOLUME 68 fl (80-97); PLATELET COUNT 493 10^3/uL (150-450); RED BLOOD COUNT 4.54 10^6/uL (4.35-5.55); RED CELL DISTRIBUTION WIDTH 14.5 % (11.5-14.0)
--- NOTE | 2018-09-08 13:39 | PDOC PROGRESS REPORT ---
Subjective Progress Note for:: 09/08/18 Subjective:: Presented with facial abscess. S/p I&D of right submandibular, right sublingual space, and right submental space abscess due to necrotic tooth #31. Tooth extraction. - Per OP note, has [address] - This morning patient is feeling better. Continue to endorse pain however slightly improved. Denies fevers, chills, CP, SOB, NV Reason For Visit: MANDIBULAR ABCESS Physical Exam Vital Signs: Temp Pulse Resp BP Pulse Ox 97.2 F 75 20 151/87 H 94 09/08/18 11:29 09/08/18 11:29 09/08/18 11:29 09/08/18 11:29 09/08/18 11:29 Intake & Output 09/07/18 09/08/18 09/09/18 06:59 06:59 06:59 Intake Total 100 2794.8 455 Output Total 0 10 Balance 100 2784.8 455 Weight 80.9 kg 84.2 kg Results Laboratory Results: 09/08/18 09:24 09/07/18 04:17 09/08/18 09:24 WBC 20.0 H RBC 4.54 Hgb 10.1 L Hct 31.0 L MCV 68 L MCH 22.3 L MCHC 32.7 RDW 14.5 H Plt Count 493 H Impressions: Soft Tissue Neck CT 09/06/18 13:32 IMPRESSION: Right floor of mouth 4.5 x 3.5 x 3 cm abscess. Assessment & Plan - Diagnosis (1) Mandibular abscess Is this a current diagnosis for this admission?: Yes Plan: S/p I&D and dental extraction by oral surgery - Blood cultures negative * 2 - Mouth cultures pending - Continue IV Unasyn and Flagyl - Coninue IV pain meds with Toradol and Morphine; transition to orals - If stable and once drains removed, can transition to PO - Discharge in next 24-48 hours (2) GERD (gastroesophageal reflux disease) Is this a current diagnosis for this admission?: Yes Plan: Stable - Discontinued IV PPI (3) HTN (hypertension) Qualifiers: Hypertension type: essential hypertension Qualified Code(s): I10 - Essential (primary) hypertension Is this a current diagnosis for this admission?: Yes Plan: Hx of HTN - BP borderline elevated; could be 2/2 pain (4) Prostate CA Is this a current diagnosis for this admission?: Yes Plan: Known history; follows up with oncology as outpatient. - Time Time Spent with patient: Less than 15 minutes Within: within 24 hours, within 48 hours
[2018-09-08] MEDS: NORMAL SALINE 1000 ML 1,000 ML IV PRN (16:48)
[2018-09-08] MEDS ORDERED: VENLAFAXINE HCL 75 MG CAP.SR.24H PO ONE (19:00)
[2018-09-08] MEDS: ONDANSETRON HCL INJ/PF 4 MG/2 ML SDV IV PRN (20:53)
[2018-09-08] MEDS ORDERED: OXYMETAZOLINE HCL 0.05% NASAL SPRAY 15 ML BOTTLE ONE (21:13)
[2018-09-08] MEDS: TRAZODONE HCL 50 MG TABLET PO PRN (21:19)
[2018-09-08] MEDS: OXYMETAZOLINE HCL 0.05% NASAL SPRAY 15 ML BOTTLE NASL PRN (21:20)
[2018-09-09] MEDS: MORPHINE SULFATE 10 MG/ML INJ IV PRN ×3 (00:06→13:41)
[2018-09-09] MEDS: AMPICILLIN SODIUM/SULBACTAM NA 3 GM in NORMAL SALINE 100 ML IV SCH ×5 (00:07→23:52)
[2018-09-09] MEDS: METRONIDAZOLE 500 MG/NS RTU 500 MG/100 ML RTUPB IV SCH ×4 (03:02→21:09)
[2018-09-09 05:32] LABS: ABSOLUTE EOSINOPHILS # (AUTO) 0.2 10^3/uL (0.0-0.6); ABSOLUTE LYMPHOCYTES (AUTO) 2.1 10^3/uL (0.5-4.7); ABSOLUTE MONOCYTES (AUTO) 1.2 10^3/uL (0.1-1.4); ABSOLUTE NEUT (AUTO) 8.2 10^3/uL (1.7-8.2); BASOPHILS % (AUTO) 0.1 % (0-2); EOSINOPHILS % (AUTO) 1.4 % (0-6); HEMATOCRIT 28.4 % (37.9-51.0); HEMOGLOBIN 9.4 g/dL (13.5-17.0); MEAN CORPUSCULAR HEMOGLOBIN 22.5 pg (27.0-33.4); MEAN CORPUSCULAR VOLUME 68 fl (80-97); MONOCYTES % (AUTO) 10.2 % (3-13); PLATELET COUNT 453 10^3/uL (150-450); RED BLOOD COUNT 4.16 10^6/uL (4.35-5.55); RED CELL DISTRIBUTION WIDTH 14.4 % (11.5-14.0); SEGMENTED NEUTROPHILS % (AUTO) 70.3 % (42-78); TOTAL CELLS COUNTED % (AUTO) 100 %; WHITE BLOOD COUNT 11.6 10^3/uL (4.0-10.5)
[2018-09-09] MEDS: LANSOPRAZOLE 30 MG TAB.RAP.DR PO SCH (07:42)
--- NOTE | 2018-09-09 08:23 | PDOC CONSULTATION ---
Consultation Consult Date: 09/09/18 Consult reason:: RIGHT SUBMANDIBULAR SPACE ABSCESS History of Present Illness Admission Date/PCP: 09/06/18 15:52 History of Present Illness: SUMI OLIVO is a 62 year old male Past Medical History Cardiac Medical History: Reports: Hypertension EENT Medical History: Reports: Other - Patient complains of difficulty in hearing Neurological Medical History: Reports: None Endocrine Medical History: Reports: Other - Patient says he is borderline diabetic Malignancy Medical History: Reports: Other - Patient has a history of bladder cancer and last seen the urologist 6 month GI Medical History: Reports: Gastroesophageal Reflux Disease Musculoskeltal Medical History: Reports: None Skin Medical History: Reports: None Psychiatric Medical History: Reports: Depression Hematology: Reports: None, Other - Patient complains of difficulty in hearing Infectious Medical History: Reports: None Past Surgical History Past Surgical History: Reports: Orthopedic Surgery - back, R shoulder, Other - Patient has history of back surgeries due to his work Social History Smoking Status: Current Every Day Smoker Cigarettes Packs Per Day: 1 Number of Years Smokin Last Time Smoked: 09/06/2018 Frequency of Alcohol Use: Occasional Hx Recreational Drug Use: No Drugs: None Hx Prescription Drug Abuse: No - Advance Directive Resuscitation Status: Full Code Family History Family History: None, Reviewed & Not Pertinent Parental Family History Reviewed: No - NA Children Family History Reviewed: No - NA Sibling(s) Family History Reviewed.: No - NA Medication/Allergy Home Medications: Albuterol Sulfate [Ventolin Hfa 8 gm Mdi (1 Mdi/ER Disp)] 2 puff IH PRN PRN Gabapentin [Neurontin 400 mg Capsule] 400 mg PO TID 09/06/18 Losartan Potassium 100 mg PO DAILY 09/06/18 Metoprolol Succinate [Toprol Xl] 50 mg PO DAILY 09/06/18 Naproxen [Naproxen] 500 mg PO BID 09/06/18 Omeprazole [Omeprazole] 20 mg PO DAILY 09/06/18 Venlafaxine HCl [Venlafaxine Hcl Er] 225 mg PO DAILY 09/06/18 Allergies/Adverse Reactions: codeine Allergy (Verified 09/06/18 16:20) Physical Exam Vital Signs: Temp Pulse Resp BP Pulse Ox 97.5 F 69 20 145/84 H 95 09/09/18 03:59 09/09/18 03:59 09/09/18 03:59 09/09/18 03:59 09/09/18 00:00 Intake & Output 09/08/18 09/09/18 09/10/18 06:59 06:59 06:59 Intake Total 2794.8 2744 Output Total 10 0 Balance 2784.8 2744 Weight 84.2 kg 85.2 kg Results Laboratory Results: 09/09/18 04:41 09/07/18 04:17 09/08/18 09/09/18 09:24 04:41 WBC 20.0 H 11.6 H RBC 4.54 4.16 L Hgb 10.1 L 9.4 L Hct 31.0 L 28.4 L MCV 68 L 68 L MCH 22.3 L 22.5 L MCHC 32.7 33.0 RDW 14.5 H 14.4 H Plt Count 493 H 453 H Seg Neutrophils % 70.3 Lymphocytes % 18.0 Monocytes % 10.2 Eosinophils % 1.4 Basophils % 0.1 Absolute Neutrophils 8.2 Absolute Lymphocytes 2.1 Absolute Monocytes 1.2 Absolute Eosinophils 0.2 Absolute Basophils 0.0 Impressions: Soft Tissue Neck CT 09/06/18 13:32 IMPRESSION: Right floor of mouth 4.5 x 3.5 x 3 cm abscess. Assessment & Plan - Time Medications reviewed and adjusted accordingly: Yes - Patient to be discharged on Augmentin 875mg bid x 10 days Anticipated discharge: Home Within: within 24 hours - no purulent drainage noted from drains. Drains x 2 removed. F/u on Wednesday at [address] [place] [address] , [address] Galvan. phone . - Inpatient Certification I certify that my determination is in accordance with my understanding of Medicare's requirements for reasonable and necessary INPATIENT services [42 CFR 412.3e].: Yes Medical Necessity: Other - patient demonstrating improvement and ok for discharge Post Hospital Care: Other - Patient ready for D/C with oral Antibiotics and f/u with oral surgeon. - Plan Summary Plan Summary: PATIENT TO BE DISCHARGED AFTER FINAL DOSE OF IV ANTIBIOTICS. PATIENT TO HAVE AUGMENTIN 875MG BID X 10 DAYS AND PAIN MEDICATIONS. F/U AT [facility] ON WEDNESDAY AT [address] GALVAN. PHONE [phone].
[2018-09-09] MEDS: KETOROLAC TROMETHAMINE INJ/PF 30 MG/1 ML SDV IV PRN ×2 (08:56→08:57)
[2018-09-09] MEDS: ENOXAPARIN SODIUM INJ 40 MG/0.4 ML DISP.SYRIN SUBCUT SCH (09:06)
[2018-09-09] MEDS: GABAPENTIN 400 MG CAPSULE PO SCH ×3 (09:11→17:48)
[2018-09-09] MEDS: METOPROLOL SUCCINATE 50 MG TAB.SR.24H PO SCH (09:11)
[2018-09-09] MEDS: VENLAFAXINE HCL 75 MG CAP.SR.24H PO SCH (09:11)
[2018-09-09] MEDS: LOSARTAN POTASSIUM 50 MG TABLET PO SCH (09:12)
[2018-09-09] MEDS: ONDANSETRON HCL INJ/PF 4 MG/2 ML SDV IV PRN (09:12)
[2018-09-09] MEDS: NAPROXEN 250 MG TABLET PO SCH ×2 (09:12→17:47)
--- NOTE | 2018-09-09 11:15 | PDOC PROGRESS REPORT ---
Subjective Progress Note for:: 09/09/18 Subjective:: Presented with facial abscess. S/p I&D of right submandibular, right sublingual space, and right submental space abscess due to necrotic tooth #31. Tooth extraction. POD #2. Ruchi drains removed today. Pain improved. Denies fevers, chills, CP, SOB, NV. Eager for discharge but willing to go home tomorrow. Reason For Visit: MANDIBULAR ABCESS Physical Exam Vital Signs: Temp Pulse Resp BP Pulse Ox 97.6 F 76 18 146/88 H 95 09/09/18 08:03 09/09/18 08:03 09/09/18 08:03 09/09/18 08:03 09/09/18 08:03 Intake & Output 09/08/18 09/09/18 09/10/18 06:59 06:59 06:59 Intake Total 2794.8 2744 Output Total 10 0 Balance 2784.8 2744 Weight 84.2 kg 85.2 kg General appearance: PRESENT: no acute distress, cooperative, well-developed, well-nourished Mouth exam: PRESENT: moist, other - Right sided neck swelling, non erythematous Teeth exam: PRESENT: dental caries, poor dentation Neck exam: PRESENT: full ROM Respiratory exam: PRESENT: crackles - At lung bases, unlabored Cardiovascular exam: PRESENT: +S1, +S2. ABSENT: tachycardia GI/Abdominal exam: PRESENT: soft. ABSENT: tenderness Extremities exam: ABSENT: pedal edema Musculoskeletal exam: PRESENT: full ROM Neurological exam: PRESENT: alert, awake, CN II-XII grossly intact Psychiatric exam: PRESENT: appropriate affect Skin exam: PRESENT: dry, intact Results Laboratory Results: 09/09/18 04:41 09/07/18 04:17 09/09/18 04:41 WBC 11.6 H RBC 4.16 L Hgb 9.4 L Hct 28.4 L MCV 68 L MCH 22.5 L MCHC 33.0 RDW 14.4 H Plt Count 453 H Seg Neutrophils % 70.3 Lymphocytes % 18.0 Monocytes % 10.2 Eosinophils % 1.4 Basophils % 0.1 Absolute Neutrophils 8.2 Absolute Lymphocytes 2.1 Absolute Monocytes 1.2 Absolute Eosinophils 0.2 Absolute Basophils 0.0 Impressions: Soft Tissue Neck CT 09/06/18 13:32 IMPRESSION: Right floor of mouth 4.5 x 3.5 x 3 cm abscess. Assessment & Plan - Diagnosis (1) Mandibular abscess Is this a current diagnosis for this admission?: Yes Plan: S/p I&D and dental extraction by oral surgery. Ruchi drains removed on 09/09 - Leukocytosis resolved; afebrile, and HDS - Blood cultures negative * 2 and mouth cultures with oral mike - Continue IV Unasyn and Flagyl until 09/10 --> transition to Augmentin 875mg BID * 10 additoinal days per oral surgery - Given improvement, will decrease pain meds to Oxy 5mg PO q6 hours PRN and Morphine 1mg q6 hours PRN breakthrough pain - Discharge on 09/10 Outpatient plan - Continue PO Augmentin for 10 days - Follow up at [address] [place] [address] ON WEDNESDAY AT [address] GALVAN. PHONE [phone]. (2) GERD (gastroesophageal reflux disease) Is this a current diagnosis for this admission?: Yes Plan: Stable - Discontinued IV PPI (3) HTN (hypertension) Qualifiers: Hypertension type: essential hypertension Qualified Code(s): I10 - Essential (primary) hypertension Is this a current diagnosis for this admission?: Yes Plan: Hx of HTN - BP remains elevated; could be 2/2 pain (4) Prostate CA Is this a current diagnosis for this admission?: Yes Plan: Known history; follows up with oncology as outpatient. (5) Insomnia Is this a current diagnosis for this admission?: Yes Plan: Trial of Trazodone on 09/08 - Time Time Spent with patient: Less than 15 minutes Anticipated discharge: Home Within: within 24 hours
[2018-09-09] MEDS: OXYCODONE HCL IR 5 MG TABLET PO PRN ×3 (11:52→23:51)
[2018-09-09] MEDS: WATER IV SCH (21:11)
[2018-09-09] MEDS: DEXTROSE 5% IV SCH (21:11)
[2018-09-09] MEDS: DEXAMETHASONE SOD PHOSPHATE IV SCH (21:11)
[2018-09-09] MEDS: TRAZODONE HCL 50 MG TABLET PO PRN (23:52)
[2018-09-10] MEDS: METRONIDAZOLE 500 MG/NS RTU 500 MG/100 ML RTUPB IV SCH ×2 (03:32→09:42)
[2018-09-10] MEDS: MORPHINE SULFATE 10 MG/ML INJ IV PRN ×2 (03:38→11:43)
[2018-09-10] MEDS: AMPICILLIN SODIUM/SULBACTAM NA 3 GM in NORMAL SALINE 100 ML IV SCH ×2 (05:22→11:43)
[2018-09-10] MEDS: OXYMETAZOLINE HCL 0.05% NASAL SPRAY 15 ML BOTTLE NASL PRN (06:33)
[2018-09-10] MEDS: LOSARTAN POTASSIUM 50 MG TABLET PO SCH (09:40)
[2018-09-10] MEDS: LANSOPRAZOLE 30 MG TAB.RAP.DR PO SCH (09:40)
[2018-09-10] MEDS: METOPROLOL SUCCINATE 50 MG TAB.SR.24H PO SCH (09:41)
[2018-09-10] MEDS: VENLAFAXINE HCL 75 MG CAP.SR.24H PO SCH (09:41)
[2018-09-10] MEDS: GABAPENTIN 400 MG CAPSULE PO SCH (09:41)
[2018-09-10] MEDS: NAPROXEN 250 MG TABLET PO SCH (09:41)
[2018-09-10] MEDS: ENOXAPARIN SODIUM INJ 40 MG/0.4 ML DISP.SYRIN SUBCUT SCH (09:42)
[2018-09-10] MEDS: OXYCODONE HCL IR 5 MG TABLET PO PRN (09:42)
[2018-09-10] MEDS ORDERED: CLONIDINE HCL 0.1 MG TABLET PO SCH (10:00)
[2018-09-10 12:59] VITALS: BP 132/86
--- NOTE | 2018-09-10 14:16 | PDOC DISCHARGE SUMMARY ---
General - Admit/Disc Date/PCP Admission Date/Primary Care Provider: 09/06/18 15:52 Discharge Date: 09/10/18 - Discharge Diagnosis (1) Mandibular abscess Is this a current diagnosis for this admission?: Yes Summary: Had I&D with Dr. Estevez. Plan is for 10 days of Augmentin and follow-up in the office with Dr. Estevez early next week. Diseased tooth was extracted and a drain was placed, and the drain was removed prior to discharge. - Additional Information Resuscitation Status: Full Code Discharge Diet: Cardiac Discharge Activity: Activity As Tolerated Prescriptions: Amox Tr/Potassium Clavulanate [Augmentin 875-125 mg Tablet] 1 tab PO BID #20 tablet Oxycodone HCl [Oxy-Ir 5 mg Tablet] 5 mg PO Q6HP PRN 3 Days #10 tab PRN Reason: For Pain Home Medications: Omeprazole 20 mg PO DAILY 09/06/18 Amox Tr/Potassium Clavulanate [Augmentin 875-125 mg Tablet] 1 tab PO BID #20 tablet 09/09/18 Oxycodone HCl [Oxy-Ir 5 mg Tablet] 5 mg PO Q6HP PRN 3 Days #10 tab 09/09/18 History of Present Illness History of Present Illness: SUMI OLIVO is a 62 year old male came to the emergency room with complaints of toothache for the last 1 week. Adding to the patient the symptoms of the symptoms started as us to take 1 week ago patient does not have any insurance so he tried to take Tylenol on a hoping that problem goes away but the symptoms of pain getting worse on the daily basis associated with occasional fever and chills decreased appetite and difficulty in swallowing he is able to take "only soup so he decided to call his primary care physician in [place] on got a prescription for penicillin VK started taking since last Wednesday despite taking the antibiotics his symptoms are not getting better at home actually gotten worse on the pain is radiating to the from the right side of the mouth all the way to the scalp according to the patient pain was 10 x 10 intense pain associated with decreased appetite and difficulty in swallowing he denies any problems with shortness of breath denies any nausea vomiting diarrhea denies any chest pains denies any shortness of breath so he decided to came to the emergency room today in the emergency room CT of the soft tissue neck was done found to have an abscess on the floor of the right side of the mouth. Was started on initially on clindamycin and then switched to Unasyn in the ER he was given IV morphine as per the patient pain is improved significantly. Denies any problems like this before. The ER physician discussed the case with ENT surgeon and as per the surgeon's recommendations started on Unasyn patient is going to be seen by the ENT tomorrow for further management in the meantime we are planning to admit the patient to the stepdown Hospital Course Hospital Course: He had a diseased tooth which caused cellulitis and a subsequent mandibular abscess. He was put on antibiotics and Dr. Estevez was consulted. He had incision and drainage with a drain placed. The drain was removed yesterday. The culture was only growing oropharyngeal mike. He will be continued at home on Augmentin for 10 days. His labs and examination were reassuring and he was discharged today in good condition. He will see Dr. Estevez in the office first thing Wednesday morning. Physical Exam Vital Signs: Temp Pulse Resp BP Pulse Ox 97.9 F 67 20 132/86 H 96 09/10/18 12:58 09/10/18 12:58 09/10/18 12:58 09/10/18 12:58 09/10/18 12:58 Intake & Output 09/09/18 09/10/18 09/11/18 06:59 06:59 06:59 Intake Total 2744 1927.8 414 Output Total 0 Balance 2744 1927.8 414 Weight 85.2 kg 85.3 kg General appearance: PRESENT: no acute distress, cooperative, well-developed, well-nourished, clean bandage with some swelling over the right mandible Respiratory exam: PRESENT: crackles - At lung bases, unlabored Cardiovascular exam: PRESENT: +S1, +S2. ABSENT: tachycardia GI/Abdominal exam: PRESENT: soft. ABSENT: tenderness Extremities exam: ABSENT: pedal edema Musculoskeletal exam: PRESENT: full ROM Neurological exam: PRESENT: alert, awake, oriented x3 Skin exam: PRESENT: dry, intact Results Laboratory Results: 09/09/18 04:41 09/07/18 04:17 Impressions: Soft Tissue Neck CT 09/06/18 13:32 IMPRESSION: Right floor of mouth 4.5 x 3.5 x 3 cm abscess. Qualifiers - * PATIENT BEING DISCHARGED WITH ANY OF THE FOLLOWING DIAGNOSIS: No
== END 2018-09-10 13:26 | disposition home or self-care (01) | DRG 159 ==
LOC: ER 12:57 → 3N 15:52
PROVIDERS: ADMIT Internal Medicine; ATTEND Internal Medicine
PROC: 0J9100Z Drainage of Face Subcutaneous Tissue and Fascia with Drainage Device, Open Approach (ICD-10-PCS; principal; 2018-09-06)
PROC: 0CDXXZ0 Extraction of Lower Tooth, Single, External Approach (ICD-10-PCS; 2018-09-07)
DX: K12.2 Cellulitis and abscess of mouth (principal); K04.7 Periapical abscess without sinus; K21.9 Gastro-esophageal reflux disease without esophagitis; R73.03 Prediabetes; I10 Essential (primary) hypertension; G47.00 Insomnia, unspecified; C61 Malignant neoplasm of prostate; F32.9 Major depressive disorder, single episode, unspecified; F17.200 Nicotine dependence, unspecified, uncomplicated; Z88.5 Allergy status to narcotic agent; Z59.7 Insufficient social insurance and welfare support; Z79.899 Other long term (current) drug therapy
CPT/HCPCS: 170; 36415; 70491; 80053; 83735; 85025; 85027; 85610; 87040; 87070; 87075; 87077; 87205; 93005; 93010; 99291; J0295; J1100; J1650; J1885; J2060; J2250; J2270; J2405; J2704; J3010; J3490; J7030; S0164

== ENCOUNTER 2020-11-09 10:16 | Emergency (ER) | payer OTHER, MEDICARE ==
--- NOTE | 2020-11-09 10:39 | ER Document Report ---
ED Medical Screen (RME) - General Chief Complaint: Cold Symptoms Stated Complaint: WEAKNESS Time Seen by Provider: 11/09/20 10:36 Primary Care Provider: TRACEE JARRETT [Primary Care Provider] - Follow up as needed Notes: HPI: 64-year-old male with COPD history presenting with 3 to 4 days of increasing shortness of breath, chest heaviness with shortness of breath, fevers and chills. States he had a negative Covid test by EMS on the way in today. Patient states he feels like he cannot breathe. He states he has been using his inhalers at home. He denies history of heart attack or heart failure PHYSICAL EXAMINATION: Pulse oximetry 96% on room air. He becomes mildly dyspneic with speaking. Lung sounds are slightly decreased more so on the right. Regular rate and rhythm I have greeted and performed a rapid initial assessment of this patient. A comprehensive ED assessment and evaluation of the patient, analysis of test results and completion of medical decision making process will be conducted by an additional ED providers. Please note that clinical decision making for this patient was made during the 2019 pandemic of novel coronavirus which caused a significant strain on the healthcare system including at this particular facility. Criteria for admission discharge and level of care decisions as well as treatment decisions have necessarily changed TRAVEL OUTSIDE OF THE [place] IN LAST 30 DAYS: No - Related Data Allergies/Adverse Reactions: codeine Allergy (Verified 09/06/18 16:20) Home Medications: Gabapentin, Diclofenac, Hydroxyzine Past Medical History - Social History Frequency of alcohol use: Occasional - Past Medical History Cardiac Medical History: Reports: Hx Hypertension Pulmonary Medical History: Reports: Hx COPD Renal/ Medical History: Denies: Hx Peritoneal Dialysis GI Medical History: Reports: Hx Gastroesophageal Reflux Disease Psychiatric Medical History: Reports: Hx Depression Past Surgical History: Reports: Hx Orthopedic Surgery - back, R shoulder, Other - Patient has history of back surgeries due to his work Physical Exam - Vital signs Vitals: Resp Pulse Ox 36 H 94 11/09/20 10:19 11/09/20 10:19 Course - Vital Signs Vital signs: Temp Pulse Resp BP Pulse Ox 98.1 F 88 26 H 150/89 H 96 11/09/20 10:33 11/09/20 10:33 11/09/20 10:33 11/09/20 10:33 11/09/20 10:33 Doctor's Discharge - Discharge Referrals: [facility] [Primary [facility]] - Follow up as needed
--- NOTE | 2020-11-09 10:45 | ER Document Report ---
ED General - General Chief Complaint: Cold Symptoms Stated Complaint: WEAKNESS Time Seen by Provider: 11/09/20 10:36 Primary Care Provider: MEGHAN MENON MD [ACTIVE STAFF] - Follow up as needed JOSÉ JAMIL MD [ACTIVE STAFF] - 11/11/20 [facility] [Primary Care Provider] - Follow up as needed TRAVEL OUTSIDE OF THE [place] IN LAST 30 DAYS: No - HPI Notes: 64-year-old male with a history of COPD and hypertension, pack-a-day smoker for the last 49 years presents to the emergency room today for evaluation of general malaise, chills, nasal congestion, mild shortness of breath with congestion, chest heaviness, fevers, chills, diarrhea over the last 3 to 4 days that has become progressively worse.. Patient reports he did get the flu shot this year. Denies any recent exposure to Covid. Patient does smoke a pack a day for the last 49 years. Patient did come in by EMS, did test negative for Covid. patient denies any history of heart failure, [place]. Eating and drinking without any issues. Has not tried any [id number] medications for his symptoms. Patient does not use supplemental oxygen at home for his COPD. denies chest pain,palpitations, dyspnea, nausea, vomiting, abdominal pain, hematuria,blurred vision, double vision, loss of vision, speech changes, LH, dizziness, syncope, headaches, wheezing, ST, URI, neck pain, weakness, bowel or bladder dysfunction, saddle anesthesia, numbness or tingling in bilateral upper or lower extremities equally, muscle paralysis, weakness in bilateral upper or lower extremities equally or rash. Denies IV drug use. - Related Data Allergies/Adverse Reactions: codeine Allergy (Verified 09/06/18 16:20) Home Medications: Gabapentin, Diclofenac, Hydroxyzine Past Medical History - General Information source: Patient - Social History Smoking Status: Current Every Day Smoker Frequency of alcohol use: Occasional Family History: None, Reviewed & Not Pertinent - Past Medical History Cardiac Medical History: Reports: Hx Hypertension Pulmonary Medical History: Reports: Hx COPD Renal/ Medical History: Denies: Hx Peritoneal Dialysis GI Medical History: Reports: Hx Gastroesophageal Reflux Disease Psychiatric Medical History: Reports: Hx Depression Past Surgical History: Reports: Hx Orthopedic Surgery - back, R shoulder, Other - Patient has history of back surgeries due to his work Review of Systems - Review of Systems Constitutional: No symptoms reported EENT: See HPI Cardiovascular: No symptoms reported Respiratory: See HPI Gastrointestinal: No symptoms reported Genitourinary: No symptoms reported Male Genitourinary: No symptoms reported Musculoskeletal: No symptoms reported Skin: No symptoms reported Hematologic/Lymphatic: No symptoms reported Neurological/Psychological: No symptoms reported Physical Exam - Vital signs Vitals: Resp Pulse Ox 36 H 94 11/09/20 10:19 11/09/20 10:19 - Notes Notes: MEDICATIONS: I agree with the patient medications as charted by the RN. ALLERGIES: I agree with the allergies as charted by the RN. PAST MEDICAL HISTORY/PAST SURGICAL HISTORY: Reviewed and agree as charted by RN. SOCIAL HISTORY: Reviewed and agree as charted by RN. FAMILY HISTORY: No significant familial comorbid conditions directly related to patient complaint EXAM: Reviewed vital signs as charted by RN. PHYSICAL EXAMINATION:reviewed vital signs by RN GENERAL: Chronically ill, slightly malnourished and in no acute distress. HEAD: Atraumatic, normocephalic. EYES: Pupils equal round and reactive to light, extraocular movements intact, sclera anicteric, conjunctiva are normal. ENT: Nares patent, oropharynx clear without exudates. Moist mucous membranes. NECK: Normal range of motion, supple without lymphadenopathy LUNGS: Mild expiratory wheezing on auscultation in upper lobes, after breathing treatment breath sounds clear to auscultation bilaterally and equal. No wheezes rales or rhonchi. HEART: Regular rate and rhythm without murmurs ABDOMEN: Soft, nontender, nondistended abdomen. No guarding, no rebound. No masses appreciated. Musculoskeletal: Normal range of motion, no pitting or edema. No cyanosis. NEUROLOGICAL: Cranial nerves grossly intact. Normal speech, normal gait. Normal sensory, motor exams PSYCH: Normal mood, normal affect. SKIN: Warm, Dry, normal turgor, no rashes or lesions noted. Course - Re-evaluation Re-evalutation: 11/09/20 12:34 Afebrile, vital stable and in no distress. CBC is does show a slight leukocytosis of 11.1, CMP negative for hepatic or renal dysfunction, no electrolyte disturbances. Troponin less than 0.012, BNP 61. Chest x-ray unremarkable. D-dimer 0.41 due to patient having shortness of breath. Patient did test positive for Covid, even though patient's rapid Covid test and EMS was negative influenza negative. patient given 2 duo-neb breathing treatments. Patient given 125 Solu-Medrol due to inspiratory wheezing. On reevaluation, patient's breath sounds clear to auscultation. Vital signs stable. Patient's HPI with his clinical presentation does support Covid diagnosis as well as possible COPD exacerbation. Patient ambulated around unit with keeping his pulse ox greater than 94%, patient's respiratory rate did come down to 22. When trending patient's vital signs, he does typically have a higher respiratory rate it appears. Did discuss case with Dr. Andrea Diallo, ER supervising physician at 1300, felt that sending patient home with azithromycin, prednisone and rescue however be appropriate, patient does not require any supplemental oxygen and is clear to auscultation, did not require any admission to the hospitalist service. I discussed with patient in length that he does need to quit smoking as this is exacerbating his Covid symptoms as well as a COPD. On reevaluation at 1234, respiratory rate is 12, pulse oxygenation is 94%, patient's HR is 93. Discussed with patient that he does need to quarantine at home for 14 days in total and does require 2 negative test 24 hours apart after quarantining for 14 days to determine if he is recovered from the virus. Patient was sent home with azith romycin, prednisone and a rescue inhaler. Patient ambulated around unit without any desaturation, vitals were stable. After performing a Medical Screening Examination, I estimate there is LOW risk for ACUTE CORONARY SYNDROME, PULMONARY EMBOLI, RESPIRATORY FAILURE, SEPSIS OR MENINGITIS, thus I consider the discharge disposition reasonable. I have reevaluated this patient multiple times and no significant life threatening changes are noted. The patient and I have discussed the diagnosis and risks, and we agree with discharging home with close follow- up. We also discussed returning to the Emergency Department immediately if new or worsening symptoms occur. We have discussed the symptoms which are most concerning (e.g., changing or worsening pain, trouble swallowing or breathing, neck stiffness, fever) that necessitate immediate return. - Vital Signs Vital signs: Temp Pulse Resp BP Pulse Ox 98.5 F 95 22 H 137/85 H 95 11/09/20 13:48 11/09/20 13:48 11/09/20 13:48 11/09/20 13:48 11/09/20 13:48 - Laboratory Results Result Diagrams: 11/09/20 10:41 11/09/20 10:41 Laboratory Results Interpreted: 11/09/20 11/09/20 11/09/20 10:41 10:41 11:13 WBC 11.1 H RBC 6.27 H MCV 67 L MCH 22.1 L RDW 15.0 H Sodium 134.3 L BUN 22 H Glucose 113 H ALT 56 H SARS-CoV-2 (PCR) DETECTED H Critical Laboratory Results Reviewed: No Critical Results - Radiology Results Critical Radiology Results Reviewed: No Critical Results - EKG Interpretation by Me EKG shows normal: Sinus rhythm Rate: Normal Rhythm: NSR Additional EKG results interpreted by me: 11/09/20 12:29 Heart rate 90. QT 368. P axis 41, QRS axis XX 1, T axis 49. Interpreted by ER supervising physician, no STEMI, no ST segment changes from previous EKG. Discharge - Discharge Clinical Impression: COPD (chronic obstructive pulmonary disease), COVID-19 Condition: Stable Disposition: HOME, SELF-CARE Instructions: COVID-19 Guidance for Persons Under Investigation Additional Instructions: You tested positive today for Covid19 virus. You have been prescribed azithromycin, this is an antibiotic to right you from getting a pneumonia, prednisone which are steroids as well as a rescue inhaler. Please carry rescue inhaler on your person due to having her COPD. You do not require any supplemental oxygen. It is advised per the CDC that you quarantine at home for 14 days, after 14 days you need to get retested twice with a 24-hour lapse in between to be considered recovered from Covid. Whomever is in your house is also considered positive for Covid per the CDC. Advised that you quit smoking as this is exacerbating your Covid diagnosis as well as your COPD. please social distance, wash your hands and wear your mask while you are homeless do not spread Covid if you do live with any other people. You can take [id number] Tylenol and ibuprofen for any fevers or chills. Return im mediately for any new or worsening symptoms. Follow up with primary care provider, call tomorrow to make followup appointment. Prescriptions: Prednisone [Deltasone 20 mg Tablet] 3 tab PO DAILY 5 Days #15 tablet Albuterol Sulfate [Proair HFA Inhalation Aerosol 8.5 gm MDI] 2 puff IH Q4H PRN #1 mdi PRN Reason: Azithromycin [Zithromax] 250 mg PO DAILY 5 Days #6 tablet Forms: Smoking Cessation Education Referrals: [facility] [Primary [facility]] - Follow up as needed JOSÉ JAMIL MD [ACTIVE STAFF] - 11/11/20 MEGHAN MENON MD [ACTIVE STAFF] - Follow up as needed
[2020-11-09] MEDS ORDERED: IPRATROPIUM/ALBUTEROL 0.5-2.5 MG/3 ML AMPUL NEB ONE ×2 (11:23→12:12)
[2020-11-09] MEDS ORDERED: METHYLPREDNISOLONE INJ 125 MG/2 ML SDV IV ONE (11:23)
[2020-11-09 11:37] LABS: ABSOLUTE EOSINOPHILS # (AUTO) 0.1 10^3/uL (0.0-0.6); ABSOLUTE LYMPHOCYTES (AUTO) 1.7 10^3/uL (0.5-4.7); ABSOLUTE MONOCYTES (AUTO) 1.1 10^3/uL (0.1-1.4); ABSOLUTE NEUT (AUTO) 8.1 10^3/uL (1.7-8.2); BASOPHILS % (AUTO) 0.2 % (0-2); HEMOGLOBIN 13.9 g/dL (13.5-17.0); LYMPHOCYTES % (AUTO) 15.3 % (13-45); MEAN CORPUSCULAR HEMOGLOBIN 22.1 pg (27.0-33.4); MEAN CORPUSCULAR HGB CONC 33.1 g/dL (32.0-36.0); MEAN CORPUSCULAR VOLUME 67 fl (80-97); PLATELET COUNT 308 10^3/uL (150-450); RED BLOOD COUNT 6.27 10^6/uL (4.35-5.55); SEGMENTED NEUTROPHILS % (AUTO) 73.5 % (42-78); TOTAL CELLS COUNTED % (AUTO) 100 %; WHITE BLOOD COUNT 11.1 10^3/uL (4.0-10.5)
--- NOTE | 2020-11-09 11:39 | RADIOLOGY REPORT (SQ) ---
EXAM DESCRIPTION: CHEST SINGLE VIEW IMAGES COMPLETED DATE/TIME: 11/09/2020 10:47 am REASON FOR STUDY: cough COMPARISON: None. EXAM PARAMETERS: NUMBER OF VIEWS: One view. TECHNIQUE: Single frontal radiographic view of the chest acquired. RADIATION DOSE: NA LIMITATIONS: None. FINDINGS: LUNGS AND PLEURA: Mild interstitial prominence. No opacities, masses or pneumothorax. No pleural effusion. MEDIASTINUM AND HILAR STRUCTURES: No masses. Contour normal. HEART AND VASCULAR STRUCTURES: Heart normal in size. Normal vasculature. BONES: No acute findings. HARDWARE: None in the chest. Left shoulder prosthesis. OTHER: No other significant finding. IMPRESSION: NO ACUTE RADIOGRAPHIC FINDING IN THE CHEST. TECHNICAL DOCUMENTATION: JOB ID: [id number] 2010 [employer]- All Rights Reserved Reading location - IP/workstation name: [email or web address]
[2020-11-09 11:46] LABS: ALBUMIN 4.2 g/dL (3.5-5.0); ALKALINE PHOSPHATASE 125 U/L (38-126); ANION GAP 10 (5-19); ASPARTATE AMINO TRANSFERASE 52 U/L (17-59); BILIRUBIN,DIRECT 0.4 mg/dL (0.0-0.4); BILIRUBIN,TOTAL 1.3 mg/dL (0.2-1.3); BLOOD UREA NITROGEN 22 mg/dL (7-20); CALCIUM 9.3 mg/dL (8.4-10.2); CARBON DIOXIDE 24 mmol/L (22-30); CHLORIDE 100 mmol/L (98-107); GLUCOSE 113 mg/dL (75-110); POTASSIUM 4.5 mmol/L (3.6-5.0); TOTAL PROTEIN 7.5 g/dL (6.3-8.2)
[2020-11-09] MEDS ORDERED: DIPHENHYDRAMINE HCL 50 MG/ML VIAL IV ONE (11:56)
[2020-11-09 12:10] LABS: NT PRO BNP 61 pg/mL (<125)
[2020-11-09 12:12] LABS: TROPONIN I < 0.012 ng/mL
[2020-11-09 13:55] VITALS: BP 137/85
--- NOTE | 2020-11-09 22:39 | EKG REPORT ---
SEVERITY:- NORMAL ECG - SINUS RHYTHM : Confirmed by: Ronak Rivera MD 09-Nov-2020 22:38:30
== END 2020-11-09 14:00 | disposition home or self-care (01) ==
LOC: ER 10:16
DX: U07.1 COVID-19 (principal); J44.9 Chronic obstructive pulmonary disease, unspecified; R53.1 Weakness; R53.81 Other malaise; R09.81 Nasal congestion; R06.02 Shortness of breath; R09.89 Other specified symptoms and signs involving the circulatory and respiratory systems; R07.9 Chest pain, unspecified; R50.9 Fever, unspecified; R19.7 Diarrhea, unspecified; I10 Essential (primary) hypertension; Z88.8 Allergy status to other drugs, medicaments and biological substances; F17.210 Nicotine dependence, cigarettes, uncomplicated; Z79.899 Other long term (current) drug therapy
CPT/HCPCS: 93005; 94640 ×2; 99285; 96374; 96375; 36415; 85025; 0202U; 80053; 84484; 85379; 83880; 71045; 93010; J1200; J2930; C9803